=== PATIENT | female | born 1970 | race Caucasian/White ===

== ENCOUNTER → 2016-08-15 | Outpatient (CLI) | payer OTHER | LOC: FIMAGING 13:39 | PROVIDERS: ATTEND Obstetrics & Gynecology | DX: Z12.31 Encounter for screening mammogram for malignant neoplasm of breast (principal); Z80.3 Family history of malignant neoplasm of breast | CPT/HCPCS: G0202 ==

== ENCOUNTER → 2017-03-05 | Outpatient (CLI) | payer OTHER ==
[~2017-03-05] MED LIST: IOPAMIDOL (ISOVUE 370) 100 ML BTL IV ONE
== END ==
LOC: FIMAGING 10:51
PROVIDERS: ATTEND Internal Medicine Cardiovascular Disease
DX: Z13.820 Encounter for screening for osteoporosis (principal); M85.89 Other specified disorders of bone density and structure, multiple sites
CPT/HCPCS: Q9967

== ENCOUNTER → 2017-04-10 | Outpatient (CLI) | payer OTHER ==
[~2017-04-10] MED LIST changes: +GADOBUTROL 10 ML VIAL IVP ONE; -IOPAMIDOL (ISOVUE 370) 100 ML BTL IV ONE
== END ==
LOC: FIMAGING 12:27
PROVIDERS: ATTEND Internal Medicine Cardiovascular Disease
DX: I77.89 Other specified disorders of arteries and arterioles (principal)
CPT/HCPCS: A9585; C8909

== ENCOUNTER → 2017-04-13 | Outpatient (CLI) | payer OTHER | LOC: FIMAGING 12:46 | PROVIDERS: ATTEND Advanced Practice Midwife | DX: Z12.39 Encounter for other screening for malignant neoplasm of breast (principal); Z80.3 Family history of malignant neoplasm of breast | CPT/HCPCS: 0159T; 77059; A9585; C8908 ==

== ENCOUNTER → 2017-07-07 | Outpatient (CLI) | payer OTHER | LOC: BMCIMAGING 17:31 | PROVIDERS: ATTEND Emergency Medicine | DX: R07.81 Pleurodynia (principal) ==

== ENCOUNTER 2018-07-12 11:45 | Emergency (ER) | payer OTHER ==
[2018-07-12] MEDS ORDERED: NS 1,000 ML IV ONE (11:58)
--- NOTE | 2018-07-12 12:11 | EDPHY ---
H & P Time Seen by Provider: 07/12/18 12:11 HPI/ROS: Chief complaint. Syncope HPI. 47-year-old female here after having a syncopal episode. She was having an MRI of her breast that was regularly scheduled in routine visit. She had an IV started and she knows that she has a hard IV start. The IV was started and she was injected with some saline. She began to feel lightheaded and then passed out. She has been nauseated for 2 days. No vomiting or diarrhea. No chest pain or shortness of breath. No fever. She has had previous syncope. She feels essentially back to normal now however still slightly nauseated ROS 10 systems were reviewed and negative with the exception of the elements mentioned in the history of present illness Past Medical/Surgical History: Healthy Social History: Single, nonsmoker, no alcohol Smoking Status: Never smoked Physical Exam: General Appearance: Alert pleasant well-developed female mild distress vital signs are stable Eyes: Pupils equal and round no pallor or injection. ENT, Mouth: Mucous membranes are moist. Respiratory: There are no retractions, lungs are clear to auscultation. Cardiovascular: Regular rate and rhythm. Gastrointestinal: Abdomen is soft and nontender, no masses, bowel sounds normal. Neurological: Awake and alert, sensory and motor exams grossly normal. Skin: Warm and dry, no rashes. Musculoskeletal: Neck is supple nontender. Extremities symmetrical, full range of motion. Psychiatric: Patient is oriented X 3, there is no agitation. Constitutional: Initial Vital Signs Temperature (C) 36.6 C 07/12/18 11:52 Heart Rate 63 07/12/18 11:52 Respiratory Rate 12 07/12/18 11:52 Blood Pressure 125/86 H 07/12/18 11:52 O2 Sat (%) 98 07/12/18 11:52 O2 Delivery Mode Room Air Allergies/Adverse Reactions: shellfish derived Allergy (Verified 02/07/12 21:13) Home Medications: Medication Instructions Recorded FLUoxetine [Prozac 20 MG (RX)] 02/08/12 Levothyroxine [Synthroid 150 mcg 02/08/12 (RX)] Reconciled 02/08/12 02/08/12 Vit27&Calcium/Iron/FA 1 each PO DAILY 02/08/12 [ Rx 1 Tablet (RX)] Medical Decision Making - Diagnostics EKG Interpretation: EKG interpreted by me shows normal sinus rhythm with normal interval and axis. QRS is normal there is no significant ST elevation or depression. No arrhythmia. The rate is 65 Procedures: IV normal saline, monitor Zofran IV ED Course/Re-evaluation: Re-evaluation at 1:50 p.m.. Patient is stable. She and I discussed laboratory evaluation, treatment plan including criteria for return. She feels well. She has no symptoms now. She also feels this is likely due to her IV start. We tried to see if she could have her MRI now as she has the IV and she is here but they are unable to do it. Differential Diagnosis: Patient was feeling well until she had an IV started for an MRI. She then got lightheaded and had a syncopal episode. No evidence for acute coronary syndrome. I thinks is vasovagal syncope - Data Points Laboratory Results: Laboratory Results 07/12/18 13:22 07/12/18 13:22 07/12/18 07/12/18 07/12/18 13:22 13:22 11:59 WBC REJ RBC REJ Hgb REJ POC Hgb 13.6 gm/dL gm/dL (12.6-16.3) Hct REJ POC Hct 40 % % (38-47) MCV REJ MCH REJ MCHC REJ RDW REJ Plt Count REJ MPV REJ Neut % (Auto) REJ Lymph % (Auto) REJ Creek % (Auto) REJ Eos % (Auto) REJ Baso % (Auto) REJ Nucleat RBC Rel Count REJ Absolute Neuts (auto) REJ Absolute Lymphs (auto) REJ Absolute Monos (auto) REJ Absolute Eos (auto) REJ Absolute Basos (auto) REJ Absolute Nucleated RBC REJ Immature Gran % REJ Immature Gran # REJ POC Sodium 140 mEq/L mEq/L (135-145) Sodium 135 mEq/L mEq/L (135-145) POC Potassium 4.4 mEq/L mEq/L (3.3-5.0) Potassium 4.3 mEq/L mEq/L (3.5-5.2) POC Chloride 106 mEq/L mEq/L (97-110) Chloride 108 mEq/L mEq/L (97-110) Carbon Dioxide 21 mEq/l L mEq/l (22-31) POC Total CO2 21 mEq/L L mEq/L (22-31) Anion Gap 6 mEq/L mEq/L (6-14) POC BUN 15 mg/dL mg/dL (7-23) BUN 12 mg/dL mg/dL (7-23) Creatinine 0.5 mg/dL L mg/dL (0.6-1.0) POC Creatinine 0.7 mg/dL mg/dL (0.6-1.0) Estimated GFR > 60 Glucose 83 mg/dL mg/dL (70-100) POC Glucose 100 mg/dL mg/dL (70-100) Calcium 8.0 mg/dL L mg/dL (8.5-10.4) POC Troponin I Specimen Hemolysis 134 07/12/18 11:58 WBC RBC Hgb POC Hgb Hct POC Hct MCV MCH MCHC RDW Plt Count MPV Neut % (Auto) Lymph % (Auto) Creek % (Auto) Eos % (Auto) Baso % (Auto) Nucleat RBC Rel Count Absolute Neuts (auto) Absolute Lymphs (auto) Absolute Monos (auto) Absolute Eos (auto) Absolute Basos (auto) Absolute Nucleated RBC Immature Gran % Immature Gran # POC Sodium Sodium POC Potassium Potassium POC Chloride Chloride Carbon Dioxide POC Total CO2 Anion Gap POC BUN BUN Creatinine POC Creatinine Estimated GFR Glucose POC Glucose Calcium POC Troponin I 0.03 ng/mL ng/mL (0.00-0.08) Specimen Hemolysis Medications Given: Discontinued Medications Sodium Chloride (Ns) 1,000 mls @ 0 mls/hr IV EDNOW ONE; Wide Open PRN Reason: Protocol Stop: 07/12/18 11:59 Last Admin: 07/12/18 12:19 Dose: 1,000 mls Ondansetron HCl (Zofran) 4 mg IVP EDNOW ONE Stop: 07/12/18 13:25 Last Admin: 07/12/18 13:54 Dose: 4 mg Point of Care Test Results: Chemistry 07/12/18 07/12/18 11:59 11:58 POC Sodium 140 mEq/L mEq/L (135-145) POC Potassium 4.4 mEq/L mEq/L (3.3-5.0) POC Chloride 106 mEq/L mEq/L (97-110) POC Total CO2 21 mEq/L L mEq/L (22-31) POC BUN 15 mg/dL mg/dL (7-23) POC Creatinine 0.7 mg/dL mg/dL (0.6-1.0) POC Glucose 100 mg/dL mg/dL (70-100) POC Troponin I 0.03 ng/mL ng/mL (0.00-0.08) ISTAT H&H 07/12/18 11:59 POC Hgb 13.6 gm/dL gm/dL (12.6-16.3) POC Hct 40 % % (38-47) Departure - Departure Disposition: Home, Routine, Self-Care Clinical Impression: Syncope Qualifiers: Syncope type: vasovagal syncope Qualified Code(s): R55 - Syncope and collapse Condition: Good Instructions: Syncope (ED) Additional Instructions: Drink plenty of fluids and stay hydrated. Easy activity today. Return for chest discomfort, trouble breathing, another passing out episode MRI was unable to complete you're MRI exam today. You will need to reschedule Referrals: IVONE KAHN [Primary Care Provider] - As per Instructions
--- NOTE | 2018-07-12 12:22 | PDCONSULT ---
Tank Washer Note: SKIP AGUILA NOTE - skip aguila was called, there was no respiratory or cardiac arrest, but a syncope I RESPONDED TO A SKIP AGUILA CALL LATE THIS MORNING FOR A PATIENT WHO WAS IN THE IMAGING DEPARTMENT HAVING AN IV PLACED FOR A MRI SCAN. THIS PATIENT WAS AN OUTPATIENT AT THE TIME The patient is here as an outpatient for MRI of the breast. She was in the imaging department sitting in a chair and the nurses just placed her IV. Promptly after placement of the IV patient's suddenly slumped over unresponsive briefly and then walk up. Skip aguila had been called when she was unresponsive. Is hard to tell exactly how long she was on arousable. Upon my arrival she had just awakened. She was communicating well, appear quite anxious, and said she felt very lightheaded like she was going to faint. She stated she had mild dyspnea. She denied chest pain or palpitations. There was mild nausea. She admits to a couple of previous syncopal spells in the past. She has no actual heart or lung illnesses diagnosed, states that she has a mildly dilated ascending aorta for which she sees Dr. Veliz. As I arrived her blood pressure was approximately 60/42, her pulse was in the mid 40s and regular. Her respiratory rate was at 18-20. She was sitting in a chair alert reasonably oriented interacting normally answering questions and following commands, asking questions She appeared very anxious Skin was diaphoretic slightly cool normal color HEENT unremarkable No stridor no jugular venous distension no neck mass Respirations were not labored and her lungs were clear Heart slow but regular without murmur Abdomen nondistended and soft nontender Extremities diaphoretic slightly, pulses initially weakly palpable Oxygen saturation was good EKG leads were placed and we are able to see a sinus bradycardia without obvious abnormalities otherwise IV was in place we did add normal saline bolus which was started in the imaging department Oxygen was administered for mild dyspnea She was transferred to [place] and I accompanied her with nursing staff to the emergency room where she has checked in now Upon arrival to the ER she still awake and oriented Skin remains slightly diaphoretic Blood pressure however now 126/62 and pulses in the upper 50s now We have ordered EKG and laboratory studies I reviewed the case in detail with Dr. Babak Bragg of the ER who will be taking over as her ER physician ASSESSMENT: * SYNCOPE, SUSPECT DUE TO PLACEMENT OF IV AND SOME ANXIETY OVER HER MRI * DIFFERENTIAL DIAGNOSIS COULD INCLUDE OTHER MORE CONCERNING ISSUES WHICH WILL BE ASSESSED FURTHER IN THE ER * THERE WAS NO LOSS OF PULSE OR RESPIRATION GREATER THAN 40 MIN OF CRITICAL CARE TIME TODAY
[2018-07-12] MEDS ORDERED: ONDANSETRON 4 MG/2 ML VIAL IVP ONE (13:24)
[2018-07-12 14:24] VITALS: BP 114/76
--- NOTE | 2018-07-12 15:46 | CPEKG ---
Test Reason : OPEN Blood Pressure : / mmHG Vent. Rate : 065 BPM Atrial Rate : 066 BPM P-R Int : 137 ms QRS Dur : 106 ms QT Int : 415 ms P-R-T Axes : 072 078 056 degrees QTc Int : [address] elev, probable normal early repol pattern Confirmed by Akosua Bragg ([id number]) on 07/12/2018 3:46:09 PM Referred By: AKOSUA BRAGG Confirmed By:Akosua Bragg
== END 2018-07-12 14:28 | disposition home or self-care (01) ==
DX: R55 Syncope and collapse (principal); E86.9 Volume depletion, unspecified
CPT/HCPCS: 82435-PO; 82565-PO; 82947-PO; 84132-PO; 84295-PO; 84484-ER; 84520-PO; 85014-ER; 96374; J2405

== ENCOUNTER → 2018-07-12 | Outpatient (CLI) | payer OTHER | LOC: FIMAGING 10:15 | PROVIDERS: ATTEND General Practice | DX: Z80.3 Family history of malignant neoplasm of breast (principal); Z53.9 Procedure and treatment not carried out, unspecified reason | CPT/HCPCS: A9585 ==

== ENCOUNTER → 2018-07-14 | Outpatient (CLI) | payer OTHER | LOC: FIMAGING 08:56 | PROVIDERS: ATTEND General Practice | DX: Z12.39 Encounter for other screening for malignant neoplasm of breast (principal); Z80.3 Family history of malignant neoplasm of breast | CPT/HCPCS: A9585; C8908 ==

== ENCOUNTER → 2018-07-27 | Outpatient (CLI) | payer OTHER | LOC: FIMAGING 13:39 | PROVIDERS: ATTEND General Practice | DX: R92.8 Other abnormal and inconclusive findings on diagnostic imaging of breast (principal); R92.2 Inconclusive mammogram; Z80.3 Family history of malignant neoplasm of breast ==